=== PATIENT | female | born 1995 | race Caucasian/White ===

== ENCOUNTER 2017-09-21 09:34 | Emergency (ER) | payer OTHER ==
[~2017-09-21] VITALS: Ht 160 cm; Wt 109.8 kg
[2017-09-21 10:13] LABS: ADD MIUA? YES; BILIRUBIN MODERATE; BLOOD NEGATIVE; COLOR AMBER ((YELLOW)); GLUCOSE (STRIP) NEGATIVE; KETONES NEGATIVE; LEUKOCYTES NEGATIVE; NITRITE NEGATIVE; PROTEIN (STRIP) NEGATIVE; SPECIFIC GRAVITY 1.026 (1.000-1.030)
[2017-09-21 10:25] LABS: HEMATOCRIT 39.5 % (36.0-46.0); MCHC 32.7 G/DL (30.0-36.0); MCV 85.9 FL (83-99); MEAN PLAT.VOLUME 10.3 uM^3 (9.5-12.4); PLATELET COUNT 341 K/uL (156-360); RBC DIS.WIDTH-CV 13.2 % (11.8-14.6); RBC DIS.WIDTH-SD 41.3 % (39-53); WHITE BLOOD COUNT 5.6 K/uL (4.1-10.2)
[2017-09-21 10:26] LABS: ICTOTEST POSITIVE
[2017-09-21 10:32] LABS: BACTERIA RARE /HPF; CALCIUM OXALATE CRYSTALS 1+ /HPF; EPITHELIAL CELLS RARE /HPF; HYALINE CASTS 0-5 /LPF; MUCUS TRACE /LPF; RED BLOOD CELLS 0-5 /HPF (0-5); UCUL ADDED? NO; WHITE BLOOD CELLS 0-5 /HPF (0-5)
[2017-09-21 10:35] LABS: CHLORIDE 107 mEq/L (99-109); POTASSIUM 3.9 mEq/L (3.7-5.4); SODIUM 141 mEq/L (136-147)
[2017-09-21 10:37] LABS: GLUCOSE 97 mg/dL (70-99)
[2017-09-21 10:38] LABS: ANION GAP 10 MEQ/L (2-14)
[2017-09-21 10:39] LABS: TOTAL BILIRUBIN 4.3 mg/dL (0.0-1.0)
[2017-09-21 10:40] LABS: ALKALINE PHOSPHATASE 265 IU/L (3-129)
[2017-09-21 10:41] LABS: GFR ESTIMATE (CALCULATED) > 59 mL/min/
[2017-09-21 10:42] LABS: UREA NITROGEN (BUN) 13 mg/dL (9-23)
[2017-09-21 10:44] LABS: LIPASE 12 U/L (1.0-51.0)
[2017-09-21 10:52] LABS: QUANTITATIVE HCG < 4.0 MIU/ML
[2017-09-21] MEDS ORDERED: BENTYL20 MG PO ×2 (12:48→21:45)
[2017-09-21] MEDS ORDERED: ZOFRAN ODT4 MG PO ×2 (12:48→21:45)
[2017-09-21 12:58] VITALS: BP 130/70
== END 2017-09-21 12:58 | disposition home or self-care (01) ==
LOC: EME 09:34
DX: K80.20 Calculus of gallbladder without cholecystitis without obstruction (principal); R79.89 Other specified abnormal findings of blood chemistry
CPT/HCPCS: 76705; 80053; 81003; 83690; 84702; 85027; 99281; 99285

== ENCOUNTER 2017-09-21 18:11 | Inpatient (IN) | payer OTHER ==
[~2017-09-21] VITALS: Ht 160 cm; Wt 109.5 kg
[~2017-09-21 18:11] MED LIST: BENTYL20 MG PO; ZOFRAN ODT4 MG PO
[2017-09-21] MEDS ORDERED: BENTYL20 MG PO (21:45)
[2017-09-21] MEDS ORDERED: ZOFRAN ODT4 MG PO (21:45)
[2017-09-21 22:09] LABS: HEMATOCRIT 39.6 % (36.0-46.0); MCH 28.1 PG (29.0-34.0); MCHC 32.8 G/DL (30.0-36.0); MCV 85.5 FL (83-99); MEAN PLAT.VOLUME 10.3 uM^3 (9.5-12.4); PLATELET COUNT 360 K/uL (156-360); RBC DIS.WIDTH-CV 13.2 % (11.8-14.6); RBC DIS.WIDTH-SD 41.1 % (39-53); RED BLOOD COUNT 4.63 M/uL (3.80-5.20); WHITE BLOOD COUNT 6.8 K/uL (4.1-10.2)
[2017-09-21 22:16] LABS: INTER. NORMALIZED RATIO 1.3; PROTHROMBIN TIME 15.2 SEC (10.2-12.9)
[2017-09-21 22:17] LABS: CHLORIDE 109 mEq/L (99-109); POTASSIUM 3.7 mEq/L (3.7-5.4); SODIUM 141 mEq/L (136-147)
[2017-09-21 22:19] LABS: GLUCOSE 87 mg/dL (70-99)
[2017-09-21 22:21] LABS: ANION GAP 10 MEQ/L (2-14)
[2017-09-21 22:22] LABS: TOTAL BILIRUBIN 1.7 mg/dL (0.0-1.0)
[2017-09-21 22:23] LABS: ALKALINE PHOSPHATASE 241 IU/L (3-129); GFR ESTIMATE (CALCULATED) > 59 mL/min/
[2017-09-21 22:24] LABS: UREA NITROGEN (BUN) 13 mg/dL (9-23)
[2017-09-21 22:27] LABS: LIPASE 9 U/L (1.0-51.0)
[2017-09-21 22:33] LABS: QUANTITATIVE HCG < 4.0 MIU/ML
[2017-09-22 06:02] LABS: BASOPHIL COUNT 0.1 K/uL (0-0.1); EOSINOPHIL (%) 2.3 % (0-5); EOSINOPHIL COUNT 0.1 K/uL (0-0.3); HEMATOCRIT 37.4 % (36.0-46.0); IMMATURE GRANULOCYTE (%) 0.2 % (0.0-0.7); INSTRUMENT ABS NEUTROPHIL CT 3.5 K/uL; LYMPHOCYTE COUNT 1.9 K/uL (1.0-2.8); MCH 28.1 PG (29.0-34.0); MCHC 32.4 G/DL (30.0-36.0); MEAN PLAT.VOLUME 10.3 uM^3 (9.5-12.4); MONOCYTE (%) 7.4 % (3-12); MONOCYTE COUNT 0.5 K/uL (0-0.8); NEUTROPHIL (%) 57.3 % (45-76); NEUTROPHIL COUNT 3.5 K/uL (1.8-6.4); PLATELET COUNT 298 K/uL (156-360); RBC DIS.WIDTH-CV 13.3 % (11.8-14.6); RBC DIS.WIDTH-SD 41.8 % (39-53); WHITE BLOOD COUNT 6.1 K/uL (4.1-10.2)
[2017-09-22 06:38] LABS: ALKALINE PHOSPHATASE 203 IU/L (3-129); ANION GAP 8 MEQ/L (2-14); CHLORIDE 108 MEQ/L (99-109); DIRECT BILIRUBIN 0.5 mg/dL (0.0-0.3); GFR ESTIMATE (CALCULATED) > 59 mL/min/; GLUCOSE 80 mg/dL (70-99); POTASSIUM 3.9 MEQ/L (3.7-5.4); SAMPLE HEMOLYSIS CHECK 0; SAMPLE ICTERIC CHECK 0; SAMPLE LIPEMIA CHECK 0; SODIUM 142 MEQ/L (136-147); TOTAL BILIRUBIN 1.3 MG/DL (0.0-1.0); UREA NITROGEN (BUN) 13 mg/dL (9-23)
[2017-09-22 06:55] VITALS: BP 114/55
[2017-09-22 10:10] LABS: HBSG INDEX 0.23; HPCA INDEX 0.26
[2017-09-22 10:14] LABS: ANTI-HEPATITIS A VIRUS (IGM) Nonreactive; ANTI-HEPATITIS B CORE (IGM) Nonreactive; HAV INDEX 0.14; HBC IgM INDEX 0.09
[2017-09-22 15:47] VITALS: BP 151/88
[2017-09-22 23:10] VITALS: BP 131/82
[2017-09-23 06:15] LABS: EOSINOPHIL (%) 1.9 % (0-5); EOSINOPHIL COUNT 0.1 K/uL (0-0.3); HEMATOCRIT 35.7 % (36.0-46.0); IMMATURE GRANULOCYTE (%) 0.2 % (0.0-0.7); INSTRUMENT ABS NEUTROPHIL CT 2.9 K/uL; LYMPHOCYTE COUNT 1.8 K/uL (1.0-2.8); MCH 27.3 PG (29.0-34.0); MCHC 31.4 G/DL (30.0-36.0); MCV 86.9 FL (83-99); MEAN PLAT.VOLUME 10.3 uM^3 (9.5-12.4); MONOCYTE (%) 6.8 % (3-12); MONOCYTE COUNT 0.4 K/uL (0-0.8); NEUTROPHIL (%) 55.9 % (45-76); NEUTROPHIL COUNT 2.9 K/uL (1.8-6.4); PLATELET COUNT 283 K/uL (156-360); RBC DIS.WIDTH-SD 41.1 % (39-53); RED BLOOD COUNT 4.11 M/uL (3.80-5.20); WHITE BLOOD COUNT 5.3 K/uL (4.1-10.2)
[2017-09-23 06:43] LABS: ALKALINE PHOSPHATASE 160 IU/L (3-129); ANION GAP 7 MEQ/L (2-14); CHLORIDE 108 MEQ/L (99-109); GFR ESTIMATE (CALCULATED) > 59 mL/min/; GLUCOSE 87 mg/dL (70-99); SAMPLE HEMOLYSIS CHECK 0; SAMPLE ICTERIC CHECK 0; SAMPLE LIPEMIA CHECK 0; SODIUM 141 MEQ/L (136-147); UREA NITROGEN (BUN) 9 mg/dL (9-23)
[2017-09-23 06:44] LABS: TOTAL BILIRUBIN 0.8 MG/DL (0.0-1.0)
[2017-09-23 08:00] VITALS: BP 139/73
== END 2017-09-23 11:50 | disposition home or self-care (01) | DRG 445 ==
LOC: EME 18:11 → EDOF 22:58 → 5EAST 22:58 → ENRESERV 22:59 → CANRESERV 22:59 → ENRESERV 23:37 → 5EAST 09-22 00:29 → ENPENDDIS 09-23 → 5EAST 09-23 11:50
PROVIDERS: Hospitalist; Internal Medicine; Physician Assistant
DX: K80.64 Calculus of gallbladder and bile duct with chronic cholecystitis without obstruction (principal); Z68.41 Body mass index [BMI] 40.0-44.9, adult; K75.89 Other specified inflammatory liver diseases; E66.01 Morbid (severe) obesity due to excess calories
CPT/HCPCS: 74181; 76705; 80048; 80053; 80074; 80076; 81003; 83690; 84702; 85025; 85027; 85610; 86038; 86256 90; 99281; 99285; G0480; J0696; J7030; J7050; S0030